=== PATIENT | female | born 1950 | race Caucasian/White ===

== ENCOUNTER 2019-05-07 06:01 | Day surgery (SDC) | payer OTHER ==
[2019-04-23 13:25] VITALS: BMI 25.7
[2019-05-07] MEDS ORDERED: DEXAMETHASONE SOD PHOSPHATE 4 MG/1 ML VIAL ONE (06:47)
[2019-05-07] MEDS ORDERED: PROPOFOL 20 ML ONE ×2 (06:47)
[2019-05-07 06:48] VITALS: TEMP 97.8
[2019-05-07] MEDS ORDERED: SUCCINYLCHOLINE CHLORIDE 200 MG/10 ML SYRINGE ONE (06:48)
[2019-05-07] MEDS ORDERED: EPHEDRINE SULFATE/0.9% NACL/PF 50 MG/10 ML SYRINGE NR ONE ×2 (06:48→08:29)
[2019-05-07] MEDS ORDERED: ROPIVACAINE HCL 0.5% 30ML VIAL ONE (06:56)
[2019-05-07] MEDS ORDERED: MIDAZOLAM HCL 2 MG/2 ML SINGLE DOSE VIAL ONE (06:56)
[2019-05-07] MEDS ORDERED: EPINEPHrine 1:1,000 1 MG/1 ML - 30ML VIAL (INJECTION) ONE (07:11)
[2019-05-07] MEDS ORDERED: ONDANSETRON 4 MG/2 ML VIAL IVPUSH PRN (07:16)
[2019-05-07] MEDS ORDERED: oxyCODONE HCL 5 MG TABLET PO PRN ×2 (07:16)
[2019-05-07] MEDS ORDERED: LACTATED RINGERS SOLUTION 1,000 ML IV SCH (07:30)
--- NOTE | 2019-05-07 07:32 | OP ---
Operative Note - Note: Operative Date: 05/07/19 Pre-Operative Diagnosis: Right shoulder rotator cuff tear Operation: Right shoulder arthroscopy with rotator cuff repair Post-Operative Diagnosis: Same as Pre-op Surgeon: Álvaro Aguilar [employer]s Receivable Manager: Terri Rivera Anesthesia: General (regional with sedation) Operative Report Dictated: Yes
[2019-05-07] MEDS ORDERED: ONDANSETRON 4 MG/2 ML VIAL ONE (08:41)
[2019-05-07] MEDS ORDERED: ceFAZolin SODIUM 1 GM VIAL ONE ×2 (08:41→08:58)
[2019-05-07] MEDS ORDERED: SODIUM CHLORIDE 0.9% P/F 10 ML VIAL IJ ONE (08:58)
[2019-05-07] MEDS ORDERED: LIDOCAINE HCL/PF 2% SDV 5ML VIAL ONE (08:58)
--- NOTE | 2019-05-07 11:44 | OP ---
DATE OF OPERATION: 05/07/2019 PREOPERATIVE DIAGNOSIS: Right shoulder rotator cuff tear. POSTOPERATIVE DIAGNOSES: 1. Right shoulder rotator cuff tear. 2. Partial tear, superior labrum, fraying of the superior border of the subscapularis, subacromial impingement. PROCEDURE: Right shoulder arthroscopy with debridement of superior labral tear, rotator cuff repair, and subacromial decompression. SURGEON: Álvaro Mason MD DEVELOPMENTAL MATHEMATICS PROFESSOR: TARA Mckeon, whose skillful assistance was necessary for the safe and timely performance of this procedure. Ms. Rivera was able to provide limb positioning, driving the camera, and assist in tissue mobilization as well as suture passage and implant insertion. ANESTHESIA: Regional plus general. POSTOPERATIVE CONDITION: Stable. COMPLICATIONS: None. IMPLANTS: [employer] SpeedBridge kit with 4 SwiveLock anchors as well as [employer] Q-FIX double-loaded anchor x1. INDICATIONS: This is a pleasant 68-year-old woman who had been injured quite some time ago and had a rotator cuff tear. Treatment options including nonoperative versus operative management were reviewed. Operative risks were reviewed in detail including bleeding, infection, neurovascular injury, need for further surgery, postoperative pain and stiffness, re-tear or failure to heal, permanent loss of motion and strength, pain syndrome. We discussed medical risks such as heart attack, stroke, DVT, PE, and . I addressed the use of perioperative antibiotic and DVT prophylaxis. I addressed the postoperative rehabilitation protocol and extended period of rehabilitation following rotator cuff repair. I addressed all the patient's questions and concerns regarding surgery itself. Patient voiced understanding and elected to proceed. DESCRIPTION OF PROCEDURE: The patient was brought to the operating room after administration of a regional block in the preoperative holding area. The right upper extremity was prepped and draped in the usual sterile fashion. A preoperative dose of antibiotics was given, and the usual timeout procedure was performed. It should be noted that the patient was positioned after the administration of general anesthetic in the beach chair position. Care was made to ensure that the bony prominences were well padded, the cervical spine was in neutral position, and the hips were in a position of safe flexion and rested on a well-padded rest. After draping, the bony landmarks were then marked out. A posterior viewing portal was established with an 11 blade. The arthroscope was passed into the joint. An examination of the glenohumeral joint demonstrated some mild articular wear on both the glenoid and humeral surfaces. There was some fraying about the superior labrum. The anterior portal was established under spinal needle localization. The superior labrum was freed and probed and found to be stable with only partial-thickness tearing. A mechanical shaving device was used to debride this. The subscapularis was examined, which demonstrated it was intact with some mild fraying at its superior insertion site just adjacent to the biceps. The shaver was used to debride some of this as well. Examination of the intraarticular portion of the biceps was unremarkable. The biceps was drawn into the joint, and no additional tendon pathology was seen. The arthroscope was now passed more posteriorly, exposing the footprint of the supraspinatus and infraspinatus which was completely devoid of tendon. Both the rotator cuff tendons of the supraspinatus and infraspinatus were noted to be only with mild retraction. The posterior labrum was examined, and it was unremarkable. At this point, the decision was made to enter the subacromial space. Here, there was significant fraying noted consistent with impingement. The rotator cuff was visualized from the bursal side. Utilizing electrocautery as well as a shaving device, the footprint was debrided down to bleeding bone. A spinal needle was used to make several trephinations and allow extravasation of bone marrow. The decision was made to perform a direct repair after establishing the mobility of the cuff. Two medial row anchors were punched and inserted, getting moderate purchase. The sutures were then passed utilizing a FIRSTPASS suture passing device. They were then cut and tied in a crossing pattern. Given the breadth of the tear, 2 FiberLink sutures were passed, one between the SutureTapes and one posterior to enable capturing the entire breadth of the tear. These sutures were now loaded into a crossing pattern, and 2 lateral anchors were punched and then inserted, securing the lateral row and bringing the rotator cuff back to its anatomic footprint. After securing these, there was a punched-up portion of cuff in the mid portion. To better secure this, a Q-FIX anchor was placed just more lateral on the greater tuberosity, and then, sutures were passed, reducing this dog ear down to the footprint as well. The cuff was passed throughout a range of motion and found to be stable. The electrocautery was now used to debride the undersurface of the acromion. There was significant anterolateral and lateral spurring. This was now debrided down to a stable base. At this point, the portals were sutured using 3-0 nylon. Sterile dressings were placed. Patient was extubated, transferred to recovery room in stable condition. ÁLVARO MASON M.D. [id number]
[2019-05-07 11:45] VITALS: PULSE 81
[2019-05-07 11:49] VITALS: BP 121/78
== END 2019-05-07 11:40 | disposition home or self-care (01) ==
LOC: FASU 06:01
PROVIDERS: ATTEND Orthopaedic Surgery Sports Medicine
PROC: 0LQ14ZZ Repair Right Shoulder Tendon, Percutaneous Endoscopic Approach (ICD-10-PCS; principal; 2019-05-07 08:34)
PROC: 0RNJ4ZZ Release Right Shoulder Joint, Percutaneous Endoscopic Approach (ICD-10-PCS; 2019-05-07 08:34)
PROC: 0RBJ4ZZ Excision of Right Shoulder Joint, Percutaneous Endoscopic Approach (ICD-10-PCS; 2019-05-07 08:34)
DX: M75.121 Complete rotator cuff tear or rupture of right shoulder, not specified as traumatic (principal); M75.41 Impingement syndrome of right shoulder